=== PATIENT | female | born 1995 | race American Indian/Alaskan Native ===

== ENCOUNTER 2019-07-29 11:38 | Outpatient (CLI) | payer OTHER ==
[2019-07-29] MEDS ORDERED: PRENATABS RX T1 EACH PO (11:55)
[2019-07-29] MEDS ORDERED: ZITHROMAX200 MG PO (21:36)
[2019-07-29] MEDS ORDERED: MACROBID 100 M100 MG PO (21:36)
== END 2019-07-29 22:50 | disposition home or self-care (01) ==
LOC: OBS/DEL 11:38
DX: O26.842 Uterine size-date discrepancy, second trimester (principal); O26.892 Other specified pregnancy related conditions, second trimester; R10.2 Pelvic and perineal pain; O26.852 Spotting complicating pregnancy, second trimester; O23.592 Infection of other part of genital tract in pregnancy, second trimester; O46.8X2 Other antepartum hemorrhage, second trimester

== ENCOUNTER → 2019-09-10 | Outpatient (CLI) | payer OTHER ==
[~2019-09-10] MED LIST: MACROBID 100 M100 MG PO; PRENATABS RX T1 EACH PO; ZITHROMAX200 MG PO
== END | disposition home or self-care (01) ==
LOC: PRENATAL 14:18
DX: O35.3XX0 Maternal care for (suspected) damage to fetus from viral disease in mother, not applicable or unspecified (principal)

== ENCOUNTER 2019-11-18 06:09 | Inpatient (IN) | payer OTHER ==
[~2019-11-18] VITALS: Ht 162.6 cm; Wt 83.5 kg
[2019-11-20] MEDS ORDERED: ANAPROX PO (11:59)
== END 2019-11-20 12:13 | DRG 807 ==
LOC: LDR 06:09 → OB/GYN 11:00
PROVIDERS: ADMIT Obstetrics & Gynecology
PROC: 10E0XZZ Delivery of Products of Conception, External Approach (ICD-10-PCS; principal; 2019-11-18)
PROC: 0UQGXZZ Repair Vagina, External Approach (ICD-10-PCS; 2019-11-18)
PROC: 4A1HXCZ Monitoring of Products of Conception, Cardiac Rate, External Approach (ICD-10-PCS; 2019-11-18)
PROC: 4A033R1 Measurement of Arterial Saturation, Peripheral, Percutaneous Approach (ICD-10-PCS; 2019-11-18)
PROC: 3E033VJ Introduction of Other Hormone into Peripheral Vein, Percutaneous Approach (ICD-10-PCS; 2019-11-18)
DX: O71.4 Obstetric high vaginal laceration alone (principal); Z37.0 Single live birth; O66.0 Obstructed labor due to shoulder dystocia; Z3A.40 40 weeks gestation of pregnancy

== ENCOUNTER 2023-10-22 20:39 | Emergency (ER) | payer OTHER ==
[~2023-10-22] VITALS: Ht 162.6 cm; Wt 59.0 kg
[~2023-10-22 20:39] MED LIST changes: +ANAPROX PO
[2023-10-23] MEDS ORDERED: TETANUS & DIPHTHERIA TOX,ADULT 0.5 ML VIAL IM STA (00:10)
[2023-10-23] MEDS ORDERED: CEFAZOLIN SODIUM 1,000 MG VIAL IM STA (00:11)
== END 2023-10-23 00:35 | disposition home or self-care (01) ==
LOC: ER 20:39
DX: S61.421A Laceration with foreign body of right hand, initial encounter (principal); W25.XXXA Contact with sharp glass, initial encounter; Y93.89 Activity, other specified; Y92.89 Other specified places as the place of occurrence of the external cause

== ENCOUNTER 2023-11-04 14:23 | Emergency (ER) | payer OTHER ==
[~2023-11-04] VITALS: Ht 162.6 cm; Wt 61.2 kg
== END 2023-11-04 17:43 | disposition home or self-care (01) ==
LOC: ER 14:23
DX: Z48.02 Encounter for removal of sutures (principal)